=== PATIENT | female | born 1960 | race Caucasian/White ===

== ENCOUNTER 2019-04-16 12:42 | Outpatient (CLI) | payer BC ==
--- NOTE | 2019-04-16 13:17 | RAD ---
LUMBAR SPINE THREE VIEWS: HISTORY: Diastomyelia. Low back pain with pain running down right leg. COMPARISON: None. FINDINGS: The disk spaces appear adequately preserved. Minimal facet arthrosis. No abnormal translation betwe en flexion and extension. No acute fracture. IMPRESSION: Unremarkable lumbar spine. Given the history. additional imaging might be of benefit for further assessment in that regard. POS: OFF
== END 2019-04-16 12:43 | disposition home or self-care (01) ==
LOC: TBSIIMAG 12:42
PROVIDERS: ATTEND Surgery
DX: Q06.2 Diastematomyelia (principal)
CPT/HCPCS: 72100

== ENCOUNTER 2023-09-04 06:23 | Day surgery (SDC) | payer BC ==
[2023-08-31 15:48] VITALS: BMI 20.9
[~2023-09-04 06:23] MED LIST: EPINEPHrine 0.3 MG in Ophthalmic Irrigation Solution 500 ML IRR SCH
[2023-09-04] MEDS ORDERED: Cyclopentolate 1% Opth Drop 2 ML BOT ONE (06:56)
[2023-09-04] MEDS ORDERED: PHENYLephrine 2.5% Ophth Soln 15 ml Bottle ONE (06:56)
[2023-09-04] MEDS ORDERED: Midazolam HCl 2 mg/2 ml Vial ONE (07:34)
[2023-09-04] MEDS ORDERED: fentaNYL 50 mcg/mL 1 mL Vial ONE (08:22)
[2023-09-04] MEDS ORDERED: Indocyanine Green 25 MG/10 ML VIAL ONE (08:41)
[2023-09-04] MEDS ORDERED: Maxitrol 0.1% Opth Oint 3.5 GM TUBE ONE (08:41)
[2023-09-04] MEDS ORDERED: Lidocaine 4% PF 5 ML AMP ONE (08:41)
[2023-09-04] MEDS ORDERED: Triamcinolone 40 MG/ML VIAL ONE (08:41)
[2023-09-04] MEDS ORDERED: Bupivacaine 0.75% 10 ML VIAL ONE (08:41)
[2023-09-04] MEDS ORDERED: PROPOFOL 200 MG/20 ML VIAL ONE (08:41)
[2023-09-04] MEDS ORDERED: Lidocaine 1% PF 5 ML VIAL ONE (08:41)
== END 2023-09-04 09:50 | disposition home or self-care (01) ==
LOC: SDC 06:23
PROVIDERS: ATTEND Ophthalmology Retina Specialist
PROC: 08NF3ZZ Release Left Retina, Percutaneous Approach (ICD-10-PCS; principal; 2023-09-04)
PROC: 08T53ZZ Resection of Left Vitreous, Percutaneous Approach (ICD-10-PCS; principal; 2023-09-04)
DX: H35.372 Puckering of macula, left eye (principal); Z88.2 Allergy status to sulfonamides; Z88.0 Allergy status to penicillin
CPT/HCPCS: J0171; J2250; J2704; J3010; J3301; J3490